=== PATIENT | female | born 1985 | race Hispanic/Latino ===

== ENCOUNTER 2017-09-08 18:28 | Inpatient (IN) | payer OTHER ==
[2017-09-08] MEDS ORDERED: Lidocaine 1% (PF) 30 ML VIAL ONE (19:20)
[2017-09-08] MEDS ORDERED: LR / Pitocin 40 units/1000 ml 1,000 ML ONE (19:20)
[2017-09-08 19:50] LABS: Hematocrit 42.1 % (36.0-47.0); Mean Platelet Volume 9.5 fL (7.4-10.4); Red Blood Cell (RBC) Count 4.63 mill/uL (4.20-5.40); White Blood Cell (WBC) Count 13.2 thou/uL (4.8-10.8)
[2017-09-08] MEDS ORDERED: Ondansetron HCl/PF 4 MG/2 ML Vial IVP PRN (20:31)
[2017-09-08] MEDS ORDERED: LR / Pitocin 40 units/1000 ml 1,000 ML IV PRN (20:31)
[2017-09-08] MEDS ORDERED: Acetaminophen 500 MG TAB PO PRN (20:31)
[2017-09-08] MEDS ORDERED: Lidocaine 1% (PF) 30 ML VIAL SC PRN (20:31)
[2017-09-08] MEDS ORDERED: HYDROcodone/Acetaminophen 5/325 mg Tablet PO PRN ×4 (20:31→21:01)
[2017-09-08] MEDS ORDERED: Ibuprofen 800 MG TAB PO PRN (20:31)
[2017-09-08] MEDS ORDERED: Promethazine HCl 25 MG/ML VIAL IM PRN (20:31)
--- NOTE | 2017-09-08 20:38 | PDOC.LDHP ---
Labor and Delivery H&P Chief complaint: contractions HPI: Started timing contractions at 1500 today. Denies SROM, VB. + fm Current gestational age (weeks): 39 Due date: 09/14/17 Dating criteria: last menstrual period (and verified with first trimester US at 8w.) Grav: 2 Para: 1 (IUGR at term 4.15oz) OB History Details: #1 was IUGR at term Current complications: other Abnormal US findings: Yes (Microcephaly at 34 - sent to [facility]. Targeted US report [facility] was [place]) Past Medical History: Exposure to TB with Negative Chest X ray Current medications: pre-honey vitamins Previous surgical history: none Allergies/Adverse Reactions: Allergies Allergy/AdvReac Type Severity Reaction Status Date / Time No Known Allergies Allergy Verified 09/08/17 19:19 Social history: none - Physical Exam Heart: RRR Lungs: CTAB Abdomen: gravid Extremeties: trace edema FHT: category 1 - Vaginal Exam cm dilated: 10 Effacement: 100% Station: -2 - OB Labs Blood type: A RH: positive Antibody Screen: negative HIV: negative RPR: negative HEPSAg: negative 1 hour GCT: negative GBS: negative Urine drug screen: not done Rubella: immune - Assessment L&D Assessment: term patient in labor - Plan Plan: admit to L&D -: anticipate
[2017-09-08 20:44] LABS: CO2 Tension (PaCO2) 60.2 mmHg (44.0-56.0)
[2017-09-08] MEDS ORDERED: Lactated Ringer's 1,000 ML IV SCH (20:45)
[2017-09-08 20:52] VITALS: BMI 34.4
--- NOTE | 2017-09-08 20:53 | PDOC.OPDEL ---
OB Operative/Delivery Note Delivery Dr/Surgeon: PANDA Rios Pre-Delivery Diagnosis: active labor Procedure/Post Delivery Dx: spontaneous vaginal delivery Weeks gestation: 39 Anesthesia: none - Findings A Sex: female - Additional Findings/Plan Placenta delivered: spontaneous Repaired Obstetrical Laceration: none Estimated blood loss: 200 Compilations/Other Findings: When examined upon arrival to the unit, fetus was noted to be in the OP presentation. With pushing effort, pateint SROMed and , heart tones deceled to the 70s with spontaneous recovery. Dr. Molina OB hospitalist was notified and present in the room. Charge nurse notified nursery as well to be present in the room at the time of delivery. Fetus became bradycardic in the 60- 90 range from [id number]. PANDA requested OB hospitalist to vacuum assist in delivery, which was declined at that time. Fetus delivered in the ROP presentation. Fetus had spontaneous crying and was left on the maternal abd and 3 mins of delayed cord clamping for 3 mins. Post delivery plan: routine recovery
[2017-09-08] MEDS ORDERED: Bisacodyl 10 MG SUPP PR PRN (21:01)
[2017-09-08] MEDS ORDERED: Milk Of Magnesia 30 ML UDCUP PO PRN (21:01)
[2017-09-08] MEDS ORDERED: Benzocaine/Menthol 20-0.5% 60 ML CAN TOP PRN (21:01)
[2017-09-08] MEDS ORDERED: LR / Pitocin 40 units/1000 ml 1,000 ML IV SCH (21:01)
[2017-09-08] MEDS ORDERED: Adacel (T-DAP) 0.5 ML VIAL IM ONE (21:01)
[2017-09-08] MEDS ORDERED: Lanolin Ointment 7 GM TUBE TOP PRN (21:01)
[2017-09-08] MEDS: Ibuprofen 800 MG TAB PO SCH (23:26)
[2017-09-09 05:33] LABS: Hematocrit 38.4 % (36.0-47.0); Mean Platelet Volume 9.2 fL (7.4-10.4); Red Blood Cell (RBC) Count 4.22 mill/uL (4.20-5.40); White Blood Cell (WBC) Count 14.6 thou/uL (4.8-10.8)
[2017-09-09] MEDS: Ibuprofen 800 MG TAB PO SCH ×3 (06:34→21:27)
--- NOTE | 2017-09-09 08:43 | PRG ---
DATE OF SERVICE: 09/09/2017 TIME OF EVALUATION: 07:00. LOCATION: [facility]. PATIENT ROOM: 333. In brief, this is a patient of Mariposa Gabriel, who underwent a spontaneous vaginal yesterday a t roughly 20:20. There are no new concerns identified today. SUBJECTIVE: The patient states she is doing well and is ambulating without difficulty. OBJECTIVE: VITAL SIGNS: On vital sign assessment, temperature range is from 98.5-97.7, pulse is in the 80s, re spirations are 18 and unlabored, blood pressure ranges from 125/60-1 high isolated value of 157/73 o n 09/08/2017 at 19:10, but this was immediately before a prior value of 128/60 just 1 minute prior. It is assumed that that 1 elevated blood pressure was erroneous. GENERAL: On physical exam, she is in no acute distress. GENITOURINARY: Uterus was firm and nontender, and there was no evidence of abnormal vaginal bleedin g or clinically of metritis. LABORATORY DATA: On laboratory assessment, the patient's hematocrit value was 38.4 , down from an original value of 42 pre-delivery. On day of admission, hepatitis B surface antigen and sy philis serologies were both negative. The cord gas was 7.18 at delivery (arterial). ASSESSMENT: This is a patient who is day #1, status post spontaneous vaginal witho ut issues. PLAN: 1. Continue routine care, as she is currently only 12 hours . 2. Anticipate discharge tomorrow, being 09/10/2017. 3. Follow blood pressures, although her 1 elevated value may have been surreptitious. 4. No acute needs at this time. 5. Patient has no symptoms of preeclampsia or signs of preeclampsia at this time.
[2017-09-09] MEDS: Docusate (Surfak) 240 MG CAP PO SCH ×3 (09:34→21:27)
[2017-09-09] MEDS: Ferrous Sulfate 325 MG TAB PO SCH ×2 (09:34→17:44)
[2017-09-09] MEDS: Prenatal Vitamin 1 TAB PO SCH (09:35)
[2017-09-10] MEDS: Ibuprofen 800 MG TAB PO SCH ×2 (06:04→13:16)
[2017-09-10 08:07] VITALS: BP 135/65; TEMP 97.7
[2017-09-10] MEDS: Docusate (Surfak) 240 MG CAP PO SCH (08:24)
[2017-09-10] MEDS: Prenatal Vitamin 1 TAB PO SCH (08:24)
[2017-09-10] MEDS: Ferrous Sulfate 325 MG TAB PO SCH (08:27)
== END 2017-09-10 14:45 | disposition home or self-care (01) | DRG 775 ==
LOC: L&D/OP 18:28 → L&D 19:26 → 3SW 23:00
PROVIDERS: ADMIT Student in an Organized Health Care Education/Training Program; ATTEND Student in an Organized Health Care Education/Training Program
PROC: 10E0XZZ Delivery of Products of Conception, External Approach (ICD-10-PCS; principal; 2017-09-08)
DX: O76 Abnormality in fetal heart rate and rhythm complicating labor and delivery (principal); O32.9XX0 Maternal care for malpresentation of fetus, unspecified, not applicable or unspecified; Z3A.39 39 weeks gestation of pregnancy; Z37.0 Single live birth
CPT/HCPCS: 36415; 82805; 85027; 86780; 87340; J2001

== ENCOUNTER 2020-11-19 06:05 | Inpatient (IN) | payer BC ==
[2020-11-19] MEDS ORDERED: NS / Oxytocin 40 units/1000ml 1,000 ML IV PRN (06:35)
[2020-11-19] MEDS ORDERED: hydrALAZINE 20 MG/ML VIAL SLOW IVP PRN ×2 (06:35→09:02)
[2020-11-19] MEDS ORDERED: Methylergonovine 0.2 MG/ML VIAL IM PRN ×2 (06:35→09:02)
[2020-11-19] MEDS ORDERED: HYDROcodone/Acetaminophen 5/325 mg Tablet PO PRN ×4 (06:35→09:02)
[2020-11-19] MEDS ORDERED: Butorphanol Tartrate 1 MG/ML VIAL SLOW IVP PRN (06:35)
[2020-11-19] MEDS ORDERED: Promethazine HCl 25 MG/ML VIAL IM PRN ×2 (06:35→07:38)
[2020-11-19] MEDS ORDERED: Misoprostol 200 MCG TAB PR PRN (06:35)
[2020-11-19] MEDS ORDERED: Ibuprofen 800 MG TAB PO PRN (06:35)
[2020-11-19] MEDS ORDERED: Lidocaine 1% (PF) 30 ML VIAL SC PRN (06:35)
[2020-11-19] MEDS ORDERED: Ondansetron PF 4 MG/2 ML Vial IVP PRN ×2 (06:35→07:38)
[2020-11-19 06:37] VITALS: BMI 37.8
[2020-11-19] MEDS ORDERED: Lactated Ringer's 1,000 ML IV SCH (06:45)
[2020-11-19] MEDS ORDERED: NS w/ Oxytocin 30 units 500 ML IVPB SCH (07:00)
[2020-11-19] MEDS ORDERED: Fentanyl 4 mcg/Bup 0.1% Cadd 100 ML ONE (07:09)
[2020-11-19 07:11] LABS: Hemoglobin 11.6 g/dL (12.0-16.0); Mean Corpuscular HGB CONC 31.9 g/dL (32.0-36.0); Mean Corpuscular Hemoglobin 25.7 pg (27.0-31.0); Mean Corpuscular Volume 80.6 fL (78.0-98.0); Mean Platelet Volume 9.1 fL (7.4-10.4); Platelet Count 258 thou/uL (130-400); RBC Distribution Width 16.5 % (11.5-14.5); Red Blood Cell (RBC) Count 4.51 mill/uL (4.20-5.40); White Blood Cell (WBC) Count 12.8 thou/uL (4.8-10.8)
[2020-11-19] MEDS ORDERED: Acetaminophen 325 MG TAB PO PRN (07:38)
[2020-11-19] MEDS ORDERED: ePHEDrine 50 MG/ML VIAL SLOW IVP PRN (07:38)
[2020-11-19] MEDS ORDERED: Naloxone HCl 0.4 mg/ml Vial IVP PRN ×2 (07:38)
[2020-11-19] MEDS ORDERED: Lactated Ringer's 500 ML IV PRN (07:38)
[2020-11-19] MEDS ORDERED: diphenhydrAMINE 50 MG/ML VIAL IVP PRN (07:38)
[2020-11-19 07:41] LABS: Hep B Surf Ag Non-Reactive S/CO (NonReactive); Syphilis Antibody Nonreactive (Nonreactive); Syphilis Antibody Index 0.03 S/CO (<1.00 Non-Reactive)
[2020-11-19] MEDS ORDERED: Communication Order-Pharmacy FS PRN (07:45)
[2020-11-19] MEDS ORDERED: Fentanyl 4 mcg/Bupivacaine 0.1% Cassette 100 ML EPIDURAL SCH (07:45)
[2020-11-19] MEDS ORDERED: Oxytocin 10 UNITS/ML VIAL ONE (08:35)
[2020-11-19] MEDS ORDERED: Oxytocin 10 UNITS/ML VIAL IM PRN (09:02)
[2020-11-19] MEDS ORDERED: Bisacodyl 10 MG SUPP PR PRN (09:02)
[2020-11-19] MEDS ORDERED: Milk Of Magnesia 30 ML UDCUP PO PRN (09:02)
[2020-11-19] MEDS ORDERED: Lanolin Ointment 7 GM TUBE TOP PRN (09:02)
[2020-11-19] MEDS ORDERED: Benzocaine-Menthol 82.5 ML CAN TOP PRN (09:02)
[2020-11-19] MEDS ORDERED: Misoprostol 200 MCG TAB VAG PRN (09:02)
[2020-11-19] MEDS ORDERED: NS / Oxytocin 40 units/1000ml 1,000 ML IV SCH (09:02)
[2020-11-19] MEDS ORDERED: Adacel (T-DAP) 0.5 ML SYRINGE IM ONE (09:02)
[2020-11-19] MEDS ORDERED: NS w/ Oxytocin 30 units 500 ML IV SCH (09:15)
[2020-11-19] MEDS: Prenatal Vitamin 1 TAB PO SCH (09:25)
[2020-11-19] MEDS: Docusate Calcium (SURFAK) 240 MG CAP PO SCH (09:25)
--- NOTE | 2020-11-19 12:13 | PDOC.LDHP ---
Labor and Delivery H&P Chief complaint: contractions HPI: Pt reports some leaking of fluid and painful contractions starting at 0400 this am. Current gestational age (weeks): 39 Due date: 11/21/20 Dating criteria: first trimester ultrasound Grav: 3 Para: 2 OB History Details: 2012 2016 Current complications: none Abnormal US findings: No Current medications: pre- vitamins Previous surgical history: none Allergies/Adverse Reactions: Allergies Allergy/AdvReac Type Severity Reaction Status Date / Time No Known Allergies Allergy Verified 11/19/20 06:38 Social history: none - Physical Exam Vital signs reviewed and normal: yes General: breathing through contractions Lungs: nonlabored breathing Extremeties: no edema FHT: category 1 - Vaginal Exam cm dilated: 10 Effacement: 100% Station: -2 - OB Labs Blood type: A RH: positive Antibody Screen: negative HIV: negative RPR: negative HEPSAg: negative 1 hour GCT: negative GBS: negative Urine drug screen: negative Rubella: immune - Assessment L&D Assessment: term patient in labor - Plan Plan: admit to L&D, informed consent obtained
--- NOTE | 2020-11-19 12:15 | PDOC.OPDEL ---
OB Operative/Delivery Note Delivery Dr/Surgeon: Light Pre-Delivery Diagnosis: active labor Procedure/Post Delivery Dx: spontaneous vaginal delivery Weeks gestation: 39 Anesthesia: epidural - Findings A Sex: female - 1 min: 8 - 5 min: 9 - Additional Findings/Plan Placenta delivered: spontaneous Repaired Obstetrical Laceration: none Estimated blood loss: 150mL Post delivery plan: routine recovery
[2020-11-19] MEDS ORDERED: Bupivacaine 0.25% HCL 30 ML VIAL ONE (12:29)
[2020-11-19] MEDS ORDERED: Ferrous Sulfate 325 MG TAB PO SCH (17:00)
[2020-11-19] MEDS: Ibuprofen 800 MG TAB PO SCH (17:51)
[2020-11-20] MEDS: Ibuprofen 800 MG TAB PO SCH ×2 (02:03→13:32)
[2020-11-20 02:28] LABS: SARS-CoV-2 MS2 Positive; SARS-CoV-2 N Gene Negative; SARS-CoV-2 S Gene Negative; SARS-CoV-2 by NAA Not Detected (NotDetected); SARS-CoV-2 orf1ab Negative
--- NOTE | 2020-11-20 07:38 | PDOC.PP ---
Post Progress Note Post Day #: 1 Subjective: Doing very well, no concerns, eager for discharge. Tolerating PO well, no n/v. Ambulating well. Voiding and flatus. Pain well-controlled. Lochia similar to period. Denies LEWIS, vision changes, CP, SOb, fever/chills. PO intake tolerated: yes Flatus: yes Ambulation: yes Vital Signs (12 hours) Temp Pulse Resp BP Pulse Ox 11/20/20 05:30 98.1 F 73 18 98/50 L 11/20/20 00:05 98.3 F 73 18 107/57 L 11/19/20 20:08 98.6 F 81 18 120/59 L 98 Weight Weight 90.718 kg - Physical Examination General: NAD (resting comfortably, good spirits) Cardiovascular: no m/r/g, RRR Respiratory: clear to auscultation bilaterally, non-labored breathing Abdominal: + bowel sounds, no distention, appropriately TTP Fundus firm & at: below umbilicus Extremities: negative homans (B) (no edema) Neurological: no gross focal deficits Psychiatric: A&Ox3, normal affect Result Diagrams: 11/19/20 06:43 Additional Labs: Post Labs Hep Bs Antigen Non-Reactive S/CO (NonReactive) 11/19/20 06:43 Blood Type A POSITIVE 11/19/20 06:43 - Assessment/Plan 25yo -> 3 s/p @ 39wk, PPD#1 #S/p - PPD#1 - Female infant, Apgars 8/9, QBL 96 - GBS negative - Tolerating PO well, voiding and flatus, pain well-controlled. - Routine PP care. PCP: Light Dispo: Discharge home today with routine pp care and counseling. Follow up with PCP for PP care. All questions answered. Patient eager for discharge. Addendum - Attending - Attending Attestation Date/Time: 11/21/20930 I personally evaluated the patient and discussed the management with Dr. Dobbs I agree with the History, Examination, Assessment and Plan documented above with any addition or exceptions noted below.
[2020-11-20] MEDS: Prenatal Vitamin 1 TAB PO SCH (08:08)
[2020-11-20] MEDS: Docusate Calcium (SURFAK) 240 MG CAP PO SCH (08:11)
[2020-11-20 08:58] VITALS: BP 105/56; TEMP 98.6
== END 2020-11-20 16:35 | disposition home or self-care (01) | DRG 807 ==
LOC: L&D/OP 06:05 → L&D 06:35 → 3SW 18:16
PROVIDERS: ADMIT Obstetrics & Gynecology; ATTEND Obstetrics & Gynecology
PROC: 10E0XZZ Delivery of Products of Conception, External Approach (ICD-10-PCS; principal; 2020-11-19)
DX: O80 Encounter for full-term uncomplicated delivery (principal); Z37.0 Single live birth; Z3A.39 39 weeks gestation of pregnancy; Z20.822 Contact with and (suspected) exposure to COVID-19
CPT/HCPCS: 36415; 85027; 86780; 86850; 86900; 86901; 87340; 87635; 99285; S0020; U0003